=== PATIENT | female | born 1980 | race African-American/Black ===

== ENCOUNTER 2021-09-24 10:05 | Emergency (ER) | payer MEDICAID ==
[~2021-09-24] VITALS: Ht 160 cm; Wt 58.0 kg
[2021-09-24] MEDS ORDERED: SODIUM CHLORIDE 0.9% 1,000 ML IV ONE (10:30)
[2021-09-24 11:14] LABS: HEMATOCRIT. 41.5 % (36.0-48.0); HEMOGLOBIN. 13.7 g/dL (12.0-16.0); MEAN CORPUSCULAR HEMOGLOBIN 31.7 pg (28.0-32.0); MEAN CORPUSCULAR VOLUME 96.5 fL (81.0-99.0); MEAN PLATELET VOLUME 7.4 fl (7.4-10.4); PLATELET 243 x1000/uL (130-400); RED CELL DISTRIBUTION WIDTH 13.1 % (11.6-14.6)
[2021-09-24 11:20] LABS: CHLORIDE 109 mEq/L (98-107)
[2021-09-24 11:25] LABS: HCG SCREEN NEGATIVE
[2021-09-24 11:38] LABS: PLATELET ESTIMATE NORMAL
[2021-09-24] MEDS ORDERED: MORPHINE SULFATE 4 MG/ML CPJ (NOT FOR IM USE) IV STA (12:50)
[2021-09-24] MEDS ORDERED: FAMOTIDINE 20MG/2ML VIAL IV STA (12:50)
[2021-09-24] MEDS ORDERED: ONDANSETRON HCL 4MG/2ML INJ IV STA (12:50)
[2021-09-24 13:19] VITALS: BP 137/92
[2021-09-24] MEDS ORDERED: ONDA4TAB5 MT (15:47)
== END 2021-09-24 16:00 | disposition home or self-care (01) ==
LOC: ER 10:13
DX: D25.9 Leiomyoma of uterus, unspecified (principal); K52.9 Noninfective gastroenteritis and colitis, unspecified
CPT/HCPCS: 36415; 74176; 76830; 76856; 80053; 83690; 84703; 85025; 93005; 93976; 96361; 96374; 96375; 99285; J2270; J2405; J3490; J7030